=== PATIENT | female | born 1975 | race American Indian/Alaskan Native ===

== ENCOUNTER 2017-04-30 11:21 | Outpatient (CLI) | payer MEDICARE, OTHER ==
--- NOTE | 2017-04-30 15:29 | Mammography Report ---
BILATERAL DIGITAL SCREENING MAMMOGRAM with CAD: 04/30/17 11:21:00 CLINICAL: Baseline screening. FINDINGS: The breasts are heterogeneously dense, which may obscures small masses. An oval right lower inner circumscribed asymmetry and a left inner asymmetry with architectural distortion require additional imaging.No suspicious calcifications. IMPRESSION: Bilateral asymmetries requiring further workup. BI-RADS CATEGORY: 0 -- Additional Imaging Evaluation Required RECOMMENDATION: Recall for right spot compression views and left lateralmedial and spot compression views and bilateral breast ultrasound if needed. ACR BI-RADS MAMMOGRAPHIC CODES: 0 = Needs additional imaging evaluation; 1 = Negative; 2 = Benign; 3 = Probably benign; 4 = Suspicious; 5 = Malignant; 6 = Known biopsy-proven malignancy COMMENT: 1. Dense breast tissue, i.e., adenosis, fibrocystic changes, etc., may obscure an underlying neoplasm. 2. Approximately 10% of cancers are not detected with mammography. 3. A negative mammography report should not delay biopsy if a clinically suspicious mass is present. COMMENT: Patient follow-up letters are generated via our [employer] application.
== END 2017-04-30 11:22 | disposition home or self-care (01) ==
LOC: SPVWC 11:21
PROVIDERS: ATTEND Internal Medicine
DX: Z12.31 Encounter for screening mammogram for malignant neoplasm of breast (principal); I10 Essential (primary) hypertension
CPT/HCPCS: 77067; G0202

== ENCOUNTER 2017-05-26 13:20 | Outpatient (CLI) | payer OTHER, MEDICARE ==
--- NOTE | 2017-05-26 14:36 | Ultrasound Report ---
BILATERAL DIGITAL DIAGNOSTIC MAMMOGRAM and BILATERAL BREAST ULTRASOUND: 05/26/17 13:20:00 CLINICAL: Recalled for bilateral asymmetries. COMPARISON:04/30/17 screening FINDINGS: Bilateral ML and spot compression MLO and CC views were performed. An oval right inner density persists with spot compression. An inner left asymmetry persists on the CC view but is not identified on the other views of the left breast. Ultrasound of the right breast demonstrated an oval benign anechoic cyst at 2 o'clock 2.5 cm from the nipple. It measures 7 x 5 x 7 mm and correlates with the mammographic density. Ultrasound of the inner left breast was performed and demonstrated normal fibroglandular structures with no mass, cyst or shadowing. IMPRESSION: A benign 7 mm right breast cyst at 2 o'clock and a negative left breast with a benign summation density on the CC view. This is supported by a negative left breast ultrasound. BI-RADS CATEGORY: 2 - - Benign RECOMMENDATION: Routine mammographic screening in one year. ACR BI-RADS MAMMOGRAPHIC CODES: 0 = Needs additional imaging evaluation; 1 = Negative; 2 = Benign; 3 = Probably benign; 4 = Suspicious; 5 = Malignant; 6 = Known biopsy-proven malignancy COMMENT: 1. Dense breast tissue, i.e., adenosis, fibrocystic changes, etc., may obscure an underlying neoplasm. 2. Approximately 10% of cancers are not detected with mammography. 3. A negative mammography report should not delay biopsy if a clinically suspicious mass is present. COMMENT: Patient follow-up letters are generated via our [employer] application.
== END 2017-05-26 13:21 | disposition home or self-care (01) ==
LOC: SPVWC 13:20
PROVIDERS: ATTEND Internal Medicine
DX: R92.8 Other abnormal and inconclusive findings on diagnostic imaging of breast (principal); I10 Essential (primary) hypertension
CPT/HCPCS: 76642; G0204; 77066

== ENCOUNTER 2019-04-26 09:17 | Outpatient (CLI) | payer OTHER, MEDICARE ==
--- NOTE | 2019-04-26 09:59 | Mammography Report ---
BILATERAL DIGITAL SCREENING MAMMOGRAM with CAD: 04/26/19 09:17:00 CLINICAL: Routine screening. COMPARISON:04/26/19 FINDINGS: The breasts are heterogeneously dense, which may obscure small masses. No mass, architectural distortion or suspicious calcifications. IMPRESSION: No mammographic evidence of malignancy. BI-RADS CATEGORY: 1 - - Negative RECOMMENDATION: Routine mammographic screening in one year. COMMENT: Patient follow-up letters are generated by our [employer] application.
== END 2019-04-26 09:18 | disposition home or self-care (01) ==
LOC: SPVWC 09:17
PROVIDERS: ATTEND Internal Medicine
DX: Z12.31 Encounter for screening mammogram for malignant neoplasm of breast (principal); I10 Essential (primary) hypertension
CPT/HCPCS: 77067